=== PATIENT | female | born 2000 | race Two or more races ===

== ENCOUNTER 2025-03-23 19:41 | Inpatient (IN) | payer MEDICAID, OTHER ==
[~2025-03-23] VITALS: Ht 162.6 cm; Wt 100.3 kg
[2025-03-23 20:41] LABS: Hematocrit 37.9 % (36.0-46.0); Hemoglobin 12.8 g/dL (12.2-16.2); Mean Corpuscular Hemoglobin 28.6 pg (28.0-32.0); Mean Corpuscular Volume 84.1 fL (80.0-100.0); Nucleated Red Blood Cells % 0.1 %
[2025-03-23 20:51] LABS: Potassium 3.7 mmol/L (3.5-5.1)
[2025-03-23 20:52] LABS: Anion Gap 12 (5-15); Carbon Dioxide 26 mmol/L (20-31)
[2025-03-23 20:53] LABS: Calcium 9.3 mg/dL (8.7-10.4)
[2025-03-23 20:58] LABS: BUN/Creatinine Ratio 13.0 (10.0-20.0); Blood Urea Nitrogen 10 mg/dL (9-23)
[2025-03-23 21:13] LABS: Chloride 97 mmol/L (98-107); Glucose 305 mg/dL (74-106); Sodium 135 mmol/L (136-145)
--- NOTE | 2025-03-23 21:21 | ED.PDOC ---
PRIMARY CARE PHYSICIAN HPI Comments 24 year old female presents to the ED with a chief complaint of vaginal bleeding onset today. Patient states she experienced an episode of vaginal bleeding 5 days ago, lasted about 1 hour, went to see OBGYN, was told she was 5 weeks , ultrasound was done, was told only sac was visualized, repeat would be done in 2 weeks. For the past 4 days she was experiencing spotting and today began experiencing moderate vaginal bleeding with blood clots as well as cramps. P:1. Denies fever, chills, dysuria, nausea, vomiting, chest pain, dizziness, headache. No other symptoms or modifying factors present at this time. Chief Complaint: Time Seen by MD: 21:10 Reviewed Notes: Medications, Allergies Allergies: Coded Allergies: NO KNOWN ALLERGIES (Unverified , 03/23/25) Information Source: Patient Mode of Arrival: Ambulatory Timing: Hours Prehospital treatment: None Severity: Moderate Vaginal Discharge: None Vaginal Lesions: None Bleeding Quality: Bright Red, Clotted Vaginal Mass: None Onset Of Mass/Bleeding: Spontaneous Sexual Activity: Last Consensual Aurelia: Unknown Control: None History of: Current Symptoms of Possible : Missed Period Associated Signs and Symptoms: Vaginal Bleeding, Cramping Past Medical History PAST MEDICAL HISTORY: Denies Surgical History: Denies all surgeries PERSONNEL AND PAYROLL TECHNICIAN History: No Pertinent PERSONNEL AND PAYROLL TECHNICIAN History Family History Family History: Reviewed,noncontributory to illness, No family hx of Cancer, No family hx of DM, No family hx of Heart patrick, No family hx of HTN, No family hx of Kidney patrick, No family hx of Liver patrick, No family hx of Lung patrick, No family hx of Stroke Social History Smoker: Non-Smoker Alcohol: Denies ETOH Use Drugs: Denies Drug Use Lives In: Home Constitutional: denies: chills, diaphoresis, fatigue, fever, malaise, sweats, weakness, others EENTM: denies: blurred vision, double vision, ear bleeding, ear discharge, ear drainage, ear pain, ear ringing, eye pain, eye redness, hearing loss, mouth pain, mouth swelling, nasal discharge, nose bleeding, nose congestion, nose pain, photophobia, tearing, throat pain, throat swelling, voice changes, others Respiratory: denies: cough, hemoptysis, orthopnea, SOB at rest, shortness of breath, SOB with excertion, stridor, wheezing, others Cardiovascular: denies: chest pain, dizzy spells, diaphoresis, Dyspnea on exertion, edema, irregular heart beat, left arm pain, lightheadedness, palpitations, PND, syncope, others Gastrointestinal: denies: abdomen distended, abdominal pain, blood streaked bowels, constipated, diarrhea, dysphagia, difficulty swallowing, hematemesis, melena, nausea, poor appetite, poor fluid intake, rectal bleeding, rectal pain, vomiting, others Genitourinary: reports: abnormal vagina bleeding, pain, ; denies: burning, dyspareunia, dysuria, flank pain, frequency, hematuria, incontinence, vagina discharge, urgency, others Neurological: denies: dizziness, fainting, headache, left sided numbness, left sided weakness, numbness, paresthesia, pre-existing deficit, right sided numbness, right sided weakness, seizure, speech problems, tingling, tremors, weakness, others Musculoskeletal: denies: back pain, gout, joint pain, joint swelling, muscle pain, muscle stiffness, neck pain, others Integumetry: denies: bruises, change in color, change in hair/nails, dryness, laceration, lesions, lumps, rash, wounds, others Allergic/Immunocompromised: denies: Difficulty Healing, Frequent Infections, Hives, Itching, others Hematologic/Lymphatic: denies: anemia, blood clots, easy bleeding, easy bruising, swollen glands, others Endocrine: denies: excessive hunger, excessive sweating, excessive thirst, excessive urination, flushing, intolerance to cold, intolerance to heat, unexplained weight gain, unexplained weight loss, others Psychiatric: denies: anxiety, bipolar disorder, depression, hopeless, panic disorder, schizophrenia, sleepless, suicidal, others All Other Systems: Reviewed and Negative Physical Exam General Appearance: No Apparent Distress, Normal HEENT: Normal ENT Inspection, Pharynx Normal, TMs Normal Neck: Full Range of Motion, Non-Tender, Normal, Normal Inspection Respiratory: Chest Non-Tender, Lungs Clear, No Accessory Muscle Use, No Respiratory Distress, Normal Breath Sounds Cardiovascular: No Edema, No JVD, No Murmur, No Gallop, Normal Peripheral Pulses, Regular Rate/Rhythm Breast Exam: Deferred Gastrointestinal: No Organomegaly, Non Tender, No Pulsatile Mass, Normal Bowel Sounds, Soft Genitalia: Deferred Pelvic: Deferred Rectal: Deferred Extremities: No calf tenderness, Normal capillary refill, Normal inspection, Normal range of motion, Non-tender, No pedal edema Musculoskeletal : Apperance: Normal Neurologic: Alert, caul puller II-XII nml as Tested, No Motor Deficits, Normal Affect, Normal Mood, No Sensory Deficits Cerebellar Function: Normal Reflexes: Normal Skin: Dry, Normal Color, Warm Lymphatic: No Adenopathy Was a procedure done? Was a procedure done?: No X-Ray, Labs, Meds, VS Vital Signs Date Time Temp Pulse Resp B/P (MAP) Pulse Ox O2 Delivery O2 Flow Rate FiO2 03/23/25 22:09 98.4 98 16 106/58 (74) 100 98.4 03/23/25 19:43 98.1 97 19 131/80 98 98.1 Lab Test 03/23/25 20:25 Range/Units White Blood Count 8.5 4.4-10.8 10^3/uL Red Blood Count 4.50 4.0-5.20 10^6/uL Hemoglobin 12.8 12.2-16.2 g/dL Hematocrit 37.9 36.0-46.0 % Mean Corpuscular Volume 84.1 80.0-100.0 fL Mean Corpuscular Hemoglobin 28.6 28.0-32.0 pg Mean Corpuscular Hemoglobin Concent 33.9 32.0-36.0 g/dL Red Cell Distribution Width 13.4 11.8-14.3 % Platelet Count 252 140-450 10^3/uL Mean Platelet Volume 9.1 6.9-10.8 fL Neutrophils (%) (Auto) 69.5 37.0-80.0 % Lymphocytes (%) (Auto) 22.6 10.0-50.0 % Monocytes (%) (Auto) 5.0 0.0-12.0 % Eosinophils (%) (Auto) 2.1 0.0-7.0 % Basophils (%) (Auto) 0.8 0.0-2.0 % Neutrophils # (Auto) 5.9 1.6-8.6 10 ^3/uL Lymphocytes # (Auto) 1.9 0.4-5.4 10 ^3/uL Monocytes # (Auto) 0.4 0-1.3 10 ^3/uL Eosinophils # (Auto) 0.2 0-0.8 10 ^3/uL Basophils # (Auto) 0.1 0-0.2 10 ^3/uL Nucleated Red Blood Cells 0.1 % Sodium Level 135 L 136-145 mmol/L Potassium Level 3.7 3.5-5.1 mmol/L Chloride Level 97 L 98-107 mmol/L Carbon Dioxide Level 26 20-31 mmol/L Anion Gap 12 5-15 Blood Urea Nitrogen 10 9-23 mg/dL Creatinine 0.77 0.550-1.02 mg/dL Glomerular Filtration Rate Calc 111 >90 mL/min BUN/Creatinine Ratio 13.0 10.0-20.0 Serum Glucose 305 H 74-106 mg/dL Calcium Level 9.3 8.7-10.4 mg/dL Beta HCG, Quantitative 3807.2 H 1.5-4.2 mIU/mL Time of 1ST Reevaluation: 21:40 Reevaluation 1ST: Unchanged Patient Education/Counseling: Diagnosis, Treatment, Prognosis Family Education/Counseling: No Family Present Departure 1 Departure Time of Disposition: 01:21 Impression: Primary Impression: New onset type 2 diabetes mellitus Additional Impressions: Hyperglycemia Threatened miscarriage in early 6 weeks gestation of Disposition: ADMITTED INPATIENT Admit to: Med Surg Condition: Guarded Comments 24 year old female, viable 6 wk with vag bleeding. however on lab review blood glucose is quite high at 305. I ordered iv fluids and insulin. patient will need to be admitted for new onset diabetes in early Critical Care Note Critical Care Time?: Yes (35 min-critical care time only) Critical care comment: Total critical care time: Approximately 36 minutes Due to a high probability of clinically significant, life threatening deterioration, the patient required my highest level of preparedness to intervene emergently and I personally spent this critical care time directly and personally managing the patient. This critical care time included obtaining a history; examining the patient; pulse oximetry; ordering and review of studies; arranging urgent treatment with development of a management plan; evaluation of patient's response to treatment; frequent reassessment; and, discussions with other providers. This critical care time was performed to assess and manage the high probability of imminent, life-threatening deterioration that could result in multi-organ failure. It was exclusive of separately billable procedures and treating other patients. Stability Stability form required: No Heart Score Heart Score: Heart Score Response (Comments) Value History N/A 0 EKG N/A 0 Age N/A 0 Risk Factors N/A 0 Troponin N/A 0 Total 0 I personally scribed for TIFFANIE YAO MD ([email or web address]) on 03/23/25 at 21:21. Electronically submitted by Mable Tubbs ([email or web address]). TIFFANIE YAO MD Mar 23, 2025 21:21
--- NOTE | 2025-03-23 22:34 | DVH ---
OB ULTRASOUND <14 WEEKS: HISTORY: vag bleed, 5-6 wks TECHNIQUE: Multiple real-time grayscale sonographic images of the pelvis with duplex Doppler color flow, spectral and M-mode analysis. COMPARISON: None FINDINGS: The uterus measures 7.2 x 5.4 x 5.6 cm The cervix is unremarkable Right ovary measures 2.9 x 2.2 x 2.7 cm with normal Doppler color flow. Left ovary measures 3.7 x 1.7 x 2.1 cm with normal Doppler color flow. IUP single fetus at 6 weeks 0 days average ultrasound age based on mean crown- rump length of 0.37 cm and gestational sac size of 0.69 cm heart rate detected at 91 beats per minute. Yolk sac present. Amniotic fluid unremarkable Kaur-gestational space: Trace subchorionic hemorrhage measuring 0.4 x 0.4 x 0.3 cm. IMPRESSION: IUP single live fetus measuring 6 weeks 0 days AUA corresponding to an CECILIA of 11/16/2025. bradycardia likely related to the early gestational age. Suggest a follow-up ultrasound in 7-10 days for reassessment of viability.
[2025-03-24] VITALS (9 sets, daily range): BP systolic 95–126; BP diastolic 46–78; PULSE 74–95; RESP 15–20; TEMP 98–98.9; O2SAT 97–100
[2025-03-24] MEDS: InsuLIN REG 1unit/0.01ml Soln (100units/ml) SC ONE (01:30)
[2025-03-24] MEDS: SODIUM CHLORIDE 0.9% 1,000 ML IV ONE (02:35)
[2025-03-24] MEDS ORDERED: ACETAMINOPHEN 325 MG TAB PO PRN (03:00)
--- NOTE | 2025-03-24 03:00 | DVHHPRES ---
History of Present Illness Resident Creating Document: NICOLAS PEREZ RESIDENT History of Present Illness This is a 24-year-old female [id number] past medical history of gestational diabetes came to ER with a complaint of per vaginal bleeding associated with mild lower abdominal cramps for 5 days which spotting every time but around 7:00 p.m. day before admission patient noticed clot and decided to come to ER. Patient denies any history of or miscarriage. Patient visited OBGYN on 03/21/2025 and labs/images which came back negative. Patient denies any heavy exercise, weightlifting, use any new medication including OTC. In ER patient serum blood glucose level shows 305 and received insulin. Currently patient denies any fever, SOB, chest pain, headache, upper abdominal pain, dysuria or any other acute distress. Past medical history: Gestational diabetes Past surgical history: Nothing contributory Family history: Mother-diabetes Personal history: Denies any smoking, illicit drug or EtOH PCP: Not selected Allergy: No known allergy Home medication: None Review of Systems Constitutional: Yes: Malaise Gastrointestinal: Other (Intermittent abdominal cramps) Genitourinary: Other (Per vaginal bleeding) Allergies: Coded Allergies: NO KNOWN ALLERGIES (Unverified , 03/23/25) Medications Current Medications Medications Dose Ordered Sig/Dalton Route Start Time Stop Time Status Last Admin Dose Admin Sodium Chloride 1,000 ml @ 75 mls/hr [id number] IV 03/24/25 03:00 UNV Acetaminophen 650 mg Q6HP PRN PO 03/24/25 03:00 UNV Insulin Human Lispro AC SC 03/24/25 07:00 UNV Exam Vital Signs Vital Signs Date Time Temp Pulse Resp B/P (MAP) Pulse Ox O2 Delivery O2 Flow Rate FiO2 03/24/25 02:40 Room Air* 0 21 03/24/25 02:07 98.6 93 16 122/86 (98) 99 98.6 General Appearance: Alert, Oriented X3, Cooperative, mild distress HEENT: Atraumatic, PERRLA, EOMI, Mucous membr. moist/pink Respiratory: Clear to auscultation, Normal air movement Cardiovascular: Regular rate, Normal S1, Normal S2, No murmurs, Gallops Abdominal: Normal bowel sounds, Soft, Other (Mild tenderness lower abdomen on deep palpation) Extremities: No clubbing, No cyanosis, No edema, Normal pulses Skin: No breakdown, No significant lesion Neuro: Normal gait, Normal speech, Strength at 5/5 X4 ext, Sensation intact, Cranial nerves 3-12 NL Psych/Mental Status: Mental status NL, Mood NL Labs/Xrays Labs Test 03/23/25 20:25 Range/Units White Blood Count 8.5 4.4-10.8 10^3/uL Red Blood Count 4.50 4.0-5.20 10^6/uL Hemoglobin 12.8 12.2-16.2 g/dL Hematocrit 37.9 36.0-46.0 % Mean Corpuscular Volume 84.1 80.0-100.0 fL Mean Corpuscular Hemoglobin 28.6 28.0-32.0 pg Mean Corpuscular Hemoglobin Concent 33.9 32.0-36.0 g/dL Red Cell Distribution Width 13.4 11.8-14.3 % Platelet Count 252 140-450 10^3/uL Mean Platelet Volume 9.1 6.9-10.8 fL Neutrophils (%) (Auto) 69.5 37.0-80.0 % Lymphocytes (%) (Auto) 22.6 10.0-50.0 % Monocytes (%) (Auto) 5.0 0.0-12.0 % Eosinophils (%) (Auto) 2.1 0.0-7.0 % Basophils (%) (Auto) 0.8 0.0-2.0 % Neutrophils # (Auto) 5.9 1.6-8.6 10 ^3/uL Lymphocytes # (Auto) 1.9 0.4-5.4 10 ^3/uL Monocytes # (Auto) 0.4 0-1.3 10 ^3/uL Eosinophils # (Auto) 0.2 0-0.8 10 ^3/uL Basophils # (Auto) 0.1 0-0.2 10 ^3/uL Nucleated Red Blood Cells 0.1 % Sodium Level 135 L 136-145 mmol/L Potassium Level 3.7 3.5-5.1 mmol/L Chloride Level 97 L 98-107 mmol/L Carbon Dioxide Level 26 20-31 mmol/L Anion Gap 12 5-15 Blood Urea Nitrogen 10 9-23 mg/dL Creatinine 0.77 0.550-1.02 mg/dL Glomerular Filtration Rate Calc 111 >90 mL/min BUN/Creatinine Ratio 13.0 10.0-20.0 Serum Glucose 305 H 74-106 mg/dL Calcium Level 9.3 8.7-10.4 mg/dL Beta HCG, Quantitative 3807.2 H 1.5-4.2 mIU/mL SEPSIS Sepsis Screen Date sepsis recognized/suspect: Mar 24, 2025 Time Sepsis recognized/suspect: 241 Recent Procedure: No On Antibiotic Therapy: No Respiratory Rate >20: No Heart Rate >90: No Temp<36 C (96.8 F) or >38.3 C: No SBP <90 or MAP <65 mmHG: No New Acute Mental Status Change: No Is the patient on CPAP, BIPAP,: No Physician Orders Ob Ultrasound Comp Less 14wks (03/23/25 20:04) Ob Trans Vaginal Us (03/23/25 ) Admit (03/24/25 02:49) Code Status (03/24/25 02:49) Sodium Chloride 0.9% (03/24/25 03:00) Acetaminophen Tablet (Tylenol Tablet) (03/24/25 03:00) Notify Md Of Changes From Base (03/24/25 02:49) Insulin Lispro (Human) (Humalog) (03/24/25 07:00) Communication Order (03/24/25 02:49) Consistent Carb(Ccho)Diabetes (03/24/25 Breakfast) Vitamin Tablet (Prenavite Table (03/24/25 10:00) * Eligibility Clerk Consultation (03/24/25 02:58) Vital Signs Date Time Temp Pulse Resp B/P (MAP) Pulse Ox O2 Delivery O2 Flow Rate FiO2 03/24/25 02:40 Room Air* 0 21 03/24/25 02:07 98.6 93 16 122/86 (98) 99 98.6 03/23/25 22:09 98.4 98 16 106/58 (74) 100 98.4 03/23/25 19:43 98.1 97 19 131/80 98 98.1 Laboratory Tests Test 03/23/25 20:25 White Blood Count 8.5 10^3/uL (4.4-10.8) Medications Medications Dose Ordered Sig/Dalton Route Start Time Stop Time Status Last Admin Dose Admin Insulin Human Regular 2 units ONCE ONCE SC 03/24/25 01:30 03/24/25 01:31 DC 03/24/25 01:30 2 UNITS Sodium Chloride 1,000 ml @ 1,000 mls/hr Q1H ONCE IV 03/24/25 01:30 03/24/25 02:29 DC 03/24/25 02:35 1,000 MLS/HR Assessment/Plan Assessment/Plan Vaginal bleeding due to threatened 1st trimester In ER patient received insulin, NSS Transvaginal ultrasound: IUP single live fetus measuring 6 weeks. bradycardia likely related to the early gestational age. Beta hC.2 Complete bedrest IVF vitamin Acetaminophen OBGYN consult Monitor for bleeding Gestational diabetes Hyperglycemia serum glucose 305 HbA1c Insulin sliding Monitor blood sugar Hyponatremia Sodium 135 BMP Vitamin D deficiency [place] D3 [address]9551 u/weekly Morbid obesity, BMI 35.8 Lifestyle modification Diet: Carbohydrate consistent diet GI prophylaxis: None DVT prophylaxis: SCD Goals of care discussed. More than 29 minute spent with patient. Full code status. Case discussed with Dr. Koch. Plan discussed with: Patient, Other (Nurse) My Orders Orders - NICOLAS PEREZ Procedure Category Date Status Time Admit ADMIT 03/24/25 Transmitted 02:49 Code Status CODE 03/24/25 Transmitted 02:49 Sodium Chloride 0.9% PHA 03/24/25 Logged 03:00 Acetaminophen Tablet PHA 03/24/25 Logged (Tylenol Tablet) 03:00 Notify Of Changes LADAN 03/24/25 In Process From Base 02:49 Insulin Lispro PHA 03/24/25 Logged (Human) (Humalog) 07:00 Communication Order ORDERS 03/24/25 Transmitted 02:49 Consistent DIET 03/24/25 Transmitted Carb(Ccho)Diabetes Breakfast Vitamin PHA 03/24/25 Transmitted Tablet (Prenavite 10:00 * Eligibility Clerk Consultation CONS 03/24/25 Verified 02:58 Date of Service: Mar 24, 2025 Billing Provider: NELSON KOCH MD Common Visit Codes: [id number] INP/OBS CARE (HIGH) Secondary Visit Codes: [id number] CARE PLAN 30 MINUTES NICOLAS PEREZ Mar 24, 2025 02:59
[2025-03-24] MEDS: SODIUM CHLORIDE 0.9% 1,000 ML IV SCH (03:16)
[2025-03-24] MEDS: INSULIN LISPRO (HUMAN) 100 UNITS/ML ML SC SCH (06:23)
[2025-03-24 06:34] LABS: Hematocrit 35.7 % (36.0-46.0); Hemoglobin 12.2 g/dL (12.2-16.2); Mean Corpuscular Hemoglobin 28.6 pg (28.0-32.0); Mean Corpuscular Volume 84.1 fL (80.0-100.0); Nucleated Red Blood Cells % 0.0 %
[2025-03-24 06:44] LABS: INR 0.99 (0.9-1.15); Partial Thromboplastin Time 26.2 SEC (24.5-34.5); Prothrombin Time 10.5 sec (9.3-11.8)
[2025-03-24 06:46] LABS: Alanine Aminotransferase 46 U/L (7-40); Albumin 3.6 g/dL (3.2-4.8); Alkaline Phosphatase 77 U/L (46-116); Anion Gap 10 (5-15); Bilirubin, Total 0.3 mg/dL (0.2-1.0); Calcium 8.4 mg/dL (8.7-10.4); Carbon Dioxide 25 mmol/L (20-31); Chloride 103 mmol/L (98-107); Cholesterol 189 mg/dL (< 200); Glucose 255 mg/dL (74-106); HDL Cholesterol 41 mg/dL (40-59); Potassium 3.7 mmol/L (3.5-5.1); Sodium 138 mmol/L (136-145); Total Protein 6.5 g/dL (5.7-8.2); Triglycerides 448 mg/dL (< 150)
[2025-03-24 06:49] LABS: BUN/Creatinine Ratio 14.5 (10.0-20.0); Blood Urea Nitrogen 11 mg/dL (9-23)
[2025-03-24] MEDS: INSULIN LANTUS (GLARGINE) 1 /0.01ml (100units/ml) SC SCH (11:01)
[2025-03-24] MEDS: PRENATAL VITAMIN TAB PO SCH (11:01)
[2025-03-24] MEDS: ERGOCALCIFEROL 50,000 UNIT(1.25MG) CAP PO SCH (11:01)
--- NOTE | 2025-03-24 11:02 | DVHPNRES ---
Progress Note Date Seen: Mar 24, 2025 Resident Creating Document: JONH DUCKWORTH RESDIENT Medical Necessity Reason Pt with a Central, PICC or Fol: No Subjective Review of Systems This 24-year-old lady [id number] with a past medical history of gestational diabetes came to the hospital due to vaginal bleeding since 5 days but has worsened since 1 days. She also reports of lower abdominal pain. Last menstrual period: 01/23/25 On 03/24, the patient seen and examined at the bedside. Patient is feeling better and does not have any vaginal bleeding or abdominal pain. Objective vital signs Vital Sign Date Time Temp Pulse Resp B/P (MAP) Pulse Ox O2 Delivery O2 Flow Rate FiO2 03/24/25 08:30 98.6 80 20 95/46 (62) 97 98.6 03/24/25 05:05 Room Air* 0 21 medications Current Medications Medications Dose Ordered Sig/Dalton Route Start Time Stop Time Status Last Admin Dose Admin Sodium Chloride 1,000 ml @ 75 mls/hr [id number] IV 03/24/25 03:00 03/24/25 03:16 75 MLS/HR Acetaminophen 650 mg Q6HP PRN PO 03/24/25 03:00 Insulin Human Lispro AC SC 03/24/25 07:00 03/24/25 06:23 3 UNITS Prenat Multivit/ [place]/Iron/Folic Ac 1 DAILY PO 03/24/25 10:00 Ergocalciferol 50,000 unit Q7D PO 03/24/25 09:00 Insulin Glargine 15 units DAILY@1000 SC 03/24/25 10:00 Diagnostic Test (Pha) 1 strip ACHS 03/24/25 11:30 Examination General Appearance: Alert, Oriented X3, Cooperative, No acute distress HEENT: Atraumatic, PERRLA, EOMI, Mucous membrane moist/pink Respiratory: Clear to auscultation, Normal air movement Cardiovascular: Regular rate, Normal S1, Normal S2, No murmurs, no chest wall tenderness Abdominal: Normal bowel sounds, Soft, No tenderness, No hepatosplenomegaly, No masses Extremities: No clubbing, No cyanosis, No edema, Normal pulses, No tenderness/swelling Skin: No rashes, No breakdown, No significant lesion Neuro: Normal gait, Normal speech, Strength at 5/5 X4 ext, Normal tone, Sensation intact, Cranial nerves 3-12 NL, Reflexes 2+ Psych/Mental Status: Mental status NL, Mood NL laboratory and microbiology Laboratory Tests 03/24/25 06:09 Test 03/24/25 06:09 Range/Units Serum Glucose 255 H 74-106 mg/dL Labs and/or images reviewed: Labs reviewed by me, Image(s) reviewed by me Problem List/Assessment/Plan Problem List/Assessment/Plan Vaginal bleeding and possible threatened Threatened First trimester History of gestational diabetes Uncontrolled diabetes type 2 with hyperglycemia ; new diagnosis Morbid obesity Vitamin-D deficiency * Ultrasound performed, showed IUP single live fetus measuring 6 weeks 0 days AUA corresponding to an CECILIA of 11/16/2025. bradycardia likely related to the early gestational age. Suggest a follow-up ultrasound in 7-10 days for reassessment of viability Plan/recommendation: * IV fluid normal saline * Insulin Lantus 15 units daily with lispro according to sliding scale * Consulted [facility] * Vitamin-D supplement * vitamin DIET: Diabetic diet DVT PROPHYLAXIS: SCDs, no anticoagulant due to bleeding CODE STATUS: Goal of care discussed for 20 minutes, full code DISPOSITION: Med/surge Patient's status and plan discussed with the patient. Case discussed with Dr. Velasco. Plan discussed with: Patient, Other (RN) My Orders My Orders Orders - JONH DUCKWORTH Procedure Category Date Status Time Insulin Lantus PHA 03/24/25 In Process (Glargine) (Lantus) 10:00 Glucose Blood PHA 03/24/25 In Process (Accu-Chek Comfort 11:30 Date of Service: Mar 24, 2025 Billing Provider: MALLY VELASCO MD Common Visit Codes: [id number] INP/OBS CARE(HIGH) Secondary Visit Codes: [id number] CARE PLAN 30 MINUTES (20 minutes) JONH DUCKWORTH RESDIENT Mar 24, 2025 11:02 MALLY VELASCO MD Mar 28, 2025 13:23
[2025-03-24] MEDS: ACCU-CHEK COMFORT CURVE STRIP VI SCH (11:30)
[2025-03-25] VITALS (11 sets, daily range): BP systolic 101–127; BP diastolic 59–71; PULSE 65–80; RESP 16–20; TEMP 97.8–99.1; O2SAT 97–100
[2025-03-25 06:29] LABS: Hematocrit 38.7 % (36.0-46.0); Hemoglobin 13.1 g/dL (12.2-16.2); Mean Corpuscular Hemoglobin 28.8 pg (28.0-32.0); Mean Corpuscular Volume 85.2 fL (80.0-100.0); Nucleated Red Blood Cells % 0.0 %
[2025-03-25 06:53] LABS: Alkaline Phosphatase 89 U/L (46-116); Anion Gap 9 (5-15); BUN/Creatinine Ratio 13.5 (10.0-20.0); Blood Urea Nitrogen 10 mg/dL (9-23); Calcium 9.1 mg/dL (8.7-10.4); Carbon Dioxide 26 mmol/L (20-31); Chloride 103 mmol/L (98-107); Potassium 3.7 mmol/L (3.5-5.1); Sodium 138 mmol/L (136-145); Total Protein 7.2 g/dL (5.7-8.2)
[2025-03-25 06:54] LABS: Alanine Aminotransferase 48 U/L (7-40); Albumin 4.1 g/dL (3.2-4.8); Glucose 249 mg/dL (74-106)
[2025-03-25 06:55] LABS: Bilirubin, Total 0.4 mg/dL (0.2-1.0)
--- NOTE | 2025-03-25 08:14 | DVHINCON2 ---
Date of service: Mar 25, 2025 Referring Physician hospitalist Reason for Consultation vag bleeding History of Present Illness pt is FEMALE ADMITTED FOR VAG BLEEDING ,PELVIC SONO REVEALS SCB PT IS CURRENTLY NOT BLEEDING. HER EDC IS 11-16-25 ,SHE HAD A AT [facility] Past Medical History NA Past Surgical History NA Family History NA Social History ONE Patient Family History: Patient reports no known family medical history. Allergies: Coded Allergies: NO KNOWN ALLERGIES (Unverified , 03/23/25) Home Meds No Active Prescriptions or Reported Meds Current Medications Current Medications Medications (Trade) Dose Ordered Sig/Dalton Route PRN Reason Start Time Stop Time Status Last Admin Prenat Multivit/ [place]/Iron/Folic Ac (Prenavite Tablet) 1 DAILY PO 03/24/25 10:00 03/24/25 11:01 Ergocalciferol (Vitamin D 50,000 Unit) 50,000 unit Q7D PO 03/24/25 09:00 03/24/25 11:01 Insulin Glargine (Lantus) 15 units DAILY@1000 SC 03/24/25 10:00 03/24/25 11:01 Diagnostic Test (Pha) (Accu-Chek Comfort Curve T) 1 strip ACHS 03/24/25 11:30 03/25/25 06:36 Review of Systems Constitutional: no fever, chill, weight loss HEENT: no eye pain, no hearing loss, no oral lesion, no scleral icterus Heart: no chest pain, no chest pressure Lung: no cough, no dyspnea with exertion Abdomen: see HPI : no pain with urination, normal appearing urine,SOME VAG BLEEDING Musculoskeletal: no joint pain, no muscle pain Neurological: no seizure, no loss of sensation, no weakness in extremities Pysch: no depression, no anxiety Derm: no rash, no jaundice Vital Signs Vital Signs Date Time Temp Pulse Resp B/P (MAP) Pulse Ox O2 Delivery O2 Flow Rate FiO2 03/25/25 05:00 98.1 66 20 127/59 (81) 98 98.1 03/24/25 20:00 Room Air* 0 21 Physical Exam SKIN: NL HEENT: NL NECK: NL CARDIAC: RRR PULMONARY: CTA BREASTS -SYMMETRICAL,NO MASSES ABDOMEN: SOFT,NT PELVIC-NO VAG BLEEDING NOTED,CX NL ,UTERUS 8WKS SIZE EXT-NO CCE Labs/Diagnostic Data Labs Test 03/25/25 05:39 03/25/25 05:18 03/24/25 06:09 03/23/25 20:25 Range/Units POC Glucose 245 H 70-106 mg/dl White Blood Count 8.1 4.4-10.8 10^3/uL Red Blood Count 4.55 4.0-5.20 10^6/uL Hemoglobin 13.1 12.2-16.2 g/dL Hematocrit 38.7 36.0-46.0 % Mean Corpuscular Volume 85.2 80.0-100.0 fL Mean Corpuscular Hemoglobin 28.8 28.0-32.0 pg Mean Corpuscular Hemoglobin Concent 33.8 32.0-36.0 g/dL Red Cell Distribution Width 13.4 11.8-14.3 % Platelet Count 230 140-450 10^3/uL Mean Platelet Volume 9.0 6.9-10.8 fL Neutrophils (%) (Auto) 59.2 37.0-80.0 % Lymphocytes (%) (Auto) 31.2 10.0-50.0 % Monocytes (%) (Auto) 6.7 0.0-12.0 % Eosinophils (%) (Auto) 2.5 0.0-7.0 % Basophils (%) (Auto) 0.4 0.0-2.0 % Neutrophils # (Auto) 4.8 1.6-8.6 10 ^3/uL Lymphocytes # (Auto) 2.5 0.4-5.4 10 ^3/uL Monocytes # (Auto) 0.5 0-1.3 10 ^3/uL Eosinophils # (Auto) 0.2 0-0.8 10 ^3/uL Basophils # (Auto) 0 0-0.2 10 ^3/uL Nucleated Red Blood Cells 0.0 % Sodium Level 138 136-145 mmol/L Potassium Level 3.7 3.5-5.1 mmol/L Chloride Level 103 98-107 mmol/L Carbon Dioxide Level 26 20-31 mmol/L Anion Gap 9 5-15 Blood Urea Nitrogen 10 9-23 mg/dL Creatinine 0.74 0.550-1.02 mg/dL Glomerular Filtration Rate Calc 117 >90 mL/min BUN/Creatinine Ratio 13.5 10.0-20.0 Serum Glucose 249 H 74-106 mg/dL Calcium Level 9.1 8.7-10.4 mg/dL Total Bilirubin 0.4 0.2-1.0 mg/dL Aspartate Amino Transferase (AST) 27 13-40 U/L Alanine Aminotransferase (ALT) 48 H 7-40 U/L Alkaline Phosphatase 89 46-116 U/L Total Protein 7.2 5.7-8.2 g/dL Albumin 4.1 3.2-4.8 g/dL Prothrombin Time 10.5 9.3-11.8 sec Prothrombin Time INR 0.99 0.9-1.15 Activated Partial Thromboplast Time 26.2 24.5-34.5 SEC Hemoglobin A1c 11.4 H <5.7 % A1C Triglycerides Level 448 H < 150 mg/dL Cholesterol Level 189 < 200 mg/dL LDL Cholesterol < 100 mg/dL HDL Cholesterol 41 40-59 mg/dL Thyroid Stimulating Hormone (TSH) 1.92 0.55-4.78 uIU/mL Vitamin B12 Level 628 211-911 pg/mL Vitamin D 25-Hydroxy 15.0 L 30.0-100 ng/mL Beta HCG, Quantitative 3807.2 H 1.5-4.2 mIU/mL Primary Diagnosis VAG BLEEDING DUE TO THREATENED AB Plan PELVIC REST ,NO EXERCISE AND REPEAT SONO IN ONE WEEK I HAVE HER FU WITH ME ON FRIDAY TO [facility] WILL SIGN OFF ,THANK YOU FOR THIS CONSULTATION Plan discussed with: Patient Visit Coding OBGYN Date of Service: Mar 25, 2025 Billing Provider: AMY MELENDREZ DO TRAINING AND DEVELOPMENT COORDINATOR Common Visit Codes: [id number] INP/OBS CARE (HIGH) TRAINING AND DEVELOPMENT COORDINATOR Consultation Codes: [id number]/U INPATIENT CONSULT (HIGH) AMY MELENDREZ DO Mar 25, 2025 08:14
--- NOTE | 2025-03-25 10:54 | DVHPNRES ---
Progress Note Date Seen: Mar 25, 2025 Resident Creating Document: JONH DUCKWORTH RESDIENT Medical Necessity Reason Pt with a Central, PICC or Fol: No Subjective Review of Systems This 24-year-old lady [id number] with a past medical history of gestational diabetes came to the hospital due to vaginal bleeding since 5 days but has worsened since 1 days. She also reports of lower abdominal pain. Last menstrual period: 01/23/25 On 03/24, the patient seen and examined at the bedside. Patient is feeling better and does not have any vaginal bleeding or abdominal pain. On 03/25, the patient seen and examined at the bedside. Patient is feeling better since admission but still complaining per vaginal bleeding and abdominal pain. Objective vital signs Vital Sign Date Time Temp Pulse Resp B/P (MAP) Pulse Ox O2 Delivery O2 Flow Rate FiO2 03/25/25 09:00 99.1 78 16 106/68 (81) 98 99.1 03/24/25 20:00 Room Air* 0 21 Total Intake and Output 03/24/25 03/24/25 03/25/25 15:00 23:00 07:00 Intake Total 400 ml 800 ml Balance 400 ml 800 ml medications Current Medications Medications Dose Ordered Sig/Dalton Route Start Time Stop Time Status Last Admin Dose Admin Sodium Chloride 1,000 ml @ 75 mls/hr [id number] IV 03/24/25 03:00 03/25/25 06:36 75 MLS/HR Acetaminophen 650 mg Q6HP PRN PO 03/24/25 03:00 Insulin Human Lispro AC SC 03/24/25 07:00 03/25/25 06:46 2 UNITS Prenat Multivit/ [place]/Iron/Folic Ac 1 DAILY PO 03/24/25 10:00 03/24/25 11:01 1 Ergocalciferol 50,000 unit Q7D PO 03/24/25 09:00 03/24/25 11:01 50,000 UNIT Insulin Glargine 15 units DAILY@1000 SC 03/24/25 10:00 03/24/25 11:01 15 UNITS Diagnostic Test (Pha) 1 strip ACHS 03/24/25 11:30 03/25/25 06:36 1 STRIP Examination General Appearance: Alert, Oriented X3, Cooperative, No acute distress HEENT: Atraumatic, PERRLA, EOMI, Mucous membrane moist/pink Respiratory: Clear to auscultation, Normal air movement Cardiovascular: Regular rate, Normal S1, Normal S2, No murmurs, no chest wall tenderness Abdominal: Normal bowel sounds, Soft, No tenderness, No hepatospenomegaly, No masses Extremities: No clubbing, No cyanosis, No edema, Normal pulses, No tenderness/swelling Skin: No rashes, No breakdown, No significant lesion Neuro: Normal gait, Normal speech, Strength at 5/5 X4 ext, Normal tone, Sensation intact, Cranial nerves 3-12 NL, Reflexes 2+ Psych/Mental Status: Mental status NL, Mood NL laboratory and microbiology Laboratory Tests 03/25/25 05:18 Test 03/25/25 05:18 Range/Units Serum Glucose 249 H 74-106 mg/dL Labs and/or images reviewed: Labs reviewed by me, Image(s) reviewed by me Problem List/Assessment/Plan Problem List/Assessment/Plan Vaginal bleeding and possible threatened Threatened First trimester History of gestational diabetes Uncontrolled diabetes type 2 with hyperglycemia; diagnosed during this admission Morbid obesity Vitamin-D deficiency * Ultrasound performed, showed IUP single live fetus measuring 6 weeks 0 days AUA corresponding to an CECILIA of 11/16/2025. bradycardia likely related to the early gestational age. Suggest a follow-up ultrasound in 7-10 days for reassessment of viability Plan/recommendation: * IV fluid normal saline * Insulin Lantus 15 units daily with lispro according to sliding scale * Consulted OBGYN, recommended medical management and on outpatient basis follow up * Vitamin-D supplement * vitamin DIET: Diabetic diet DVT PROPHYLAXIS: SCDs, no anticoagulant due to bleeding CODE STATUS: Full code DISPOSITION: Med/surge Patient's status and plan discussed with the patient. Case discussed with Dr. Velasco. Plan discussed with: Patient, Other (RN) Date of Service: Mar 25, 2025 Billing Provider: MALLY VELASCO MD Common Visit Codes: [id number] INP/OBS CARE(HIGH) JONH DUCKWORTH RESDIENT Mar 25, 2025 10:54 MALLY VELASCO MD Mar 28, 2025 13:24
[2025-03-26] VITALS (8 sets, daily range): BP systolic 99–123; BP diastolic 58–70; PULSE 66–84; RESP 16–20; TEMP 97.5–98.5; O2SAT 97–100
[2025-03-26 05:44] LABS: Hematocrit 36.8 % (36.0-46.0); Hemoglobin 12.5 g/dL (12.2-16.2); Mean Corpuscular Hemoglobin 28.6 pg (28.0-32.0); Mean Corpuscular Volume 84.1 fL (80.0-100.0); Nucleated Red Blood Cells % 0.0 %
--- NOTE | 2025-03-26 10:49 | DVHPNRES ---
Progress Note Date Seen: Mar 26, 2025 Resident Creating Document: JONH DUCKWORTH RESDIENT Medical Necessity Reason Pt with a Central, PICC or Fol: No Subjective Review of Systems This 24-year-old lady [id number] with a past medical history of gestational diabetes came to the hospital due to vaginal bleeding since 5 days but has worsened since 1 days. She also reports of lower abdominal pain. Last menstrual period: 01/23/25 On 03/24, the patient seen and examined at the bedside. Patient is feeling better and does not have any vaginal bleeding or abdominal pain. On 03/25, the patient seen and examined at the bedside. Patient is feeling better since admission but still complaining per vaginal bleeding and abdominal pain. On 03/26, the patient seen and examined at the bedside. Patient is still complaining of vaginal bleeding. Objective vital signs Vital Sign Date Time Temp Pulse Resp B/P (MAP) Pulse Ox O2 Delivery O2 Flow Rate FiO2 03/26/25 09:00 97.9 68 18 123/68 (86) 98 97.9 03/25/25 20:00 Room Air* 0 21 Total Intake and Output 03/25/25 03/25/25 03/26/25 15:00 23:00 07:00 Intake Total 2310 ml 1325 ml Balance 2310 ml 1325 ml medications Current Medications Medications Dose Ordered Sig/Dalton Route Start Time Stop Time Status Last Admin Dose Admin Sodium Chloride 1,000 ml @ 75 mls/hr [id number] IV 03/24/25 03:00 03/25/25 18:03 75 MLS/HR Acetaminophen 650 mg Q6HP PRN PO 03/24/25 03:00 Insulin Human Lispro AC SC 03/24/25 07:00 03/25/25 17:25 1 UNITS Prenat Multivit/ Wellness Health Coach/Iron/Folic Ac 1 DAILY PO 03/24/25 10:00 03/26/25 10:08 1 Ergocalciferol 50,000 unit Q7D PO 03/24/25 09:00 03/24/25 11:01 50,000 UNIT Insulin Glargine 15 units DAILY@1000 SC 03/24/25 10:00 03/26/25 10:12 15 UNITS Diagnostic Test (Pha) 1 strip ACHS 03/24/25 11:30 11/29/25 06:54 1 STRIP Examination General Appearance: Alert, Oriented X3, Cooperative, No acute distress HEENT: Atraumatic, PERRLA, EOMI, Mucous membrane moist/pink Respiratory: Clear to auscultation, Normal air movement Cardiovascular: Regular rate, Normal S1, Normal S2, No murmurs, no chest wall tenderness Abdominal: Normal bowel sounds, Soft, No tenderness, No hepatospenomegaly, No masses Extremities: No clubbing, No cyanosis, No edema, Normal pulses, No tenderness/swelling Skin: No rashes, No breakdown, No significant lesion Neuro: Normal gait, Normal speech, Strength at 5/5 X4 ext, Normal tone, Sensation intact, Cranial nerves 3-12 NL, Reflexes 2+ Psych/Mental Status: Mental status NL, Mood NL laboratory and microbiology Laboratory Tests 03/26/25 05:09 03/25/25 05:18 Test 03/25/25 05:18 Range/Units Serum Glucose 249 H 74-106 mg/dL Labs and/or images reviewed: Labs reviewed by me, Image(s) reviewed by me Problem List/Assessment/Plan Problem List/Assessment/Plan Vaginal bleeding and possible threatened Threatened First trimester History of gestational diabetes Uncontrolled diabetes type 2 with hyperglycemia; diagnosis during this Morbid obesity Vitamin-D deficiency * Ultrasound performed, showed IUP single live fetus measuring 6 weeks 0 days AUA corresponding to an CECILIA of 11/16/2025. bradycardia likely related to the early gestational age. Suggest a follow-up ultrasound in 7-10 days for reassessment of viability Plan/recommendation: * IV fluid normal saline * Insulin Lantus 15 units daily with lispro according to sliding scale * Consulted OBGYN, recommended medical management and on outpatient basis follow up * Vitamin-D supplement * vitamin DIET: Diabetic diet DVT PROPHYLAXIS: SCD, no anticoagulant due to bleeding CODE STATUS: Goal of care discussed for more than 18 minutes, full code DISPOSITION: Med/surge Patient's status and plan discussed with the patient. Case discussed with Dr. Velasco. Plan discussed with: Patient, Other (RN) Date of Service: Mar 26, 2025 Billing Provider: MALLY VELASCO MD Common Visit Codes: [id number] INP/OBS CARE(HIGH) JONH DUCKWORTH RESDIENT Mar 26, 2025 10:49 MALLY VELASCO MD Mar 28, 2025 13:25
[2025-03-26] MEDS ORDERED: DEXTROSE (50%) 50ML SYRG IV PRN (11:15)
[2025-03-26] MEDS: ACCU-CHEK COMFORT CURVE STRIP VI SCH (11:30)
[2025-03-26] MEDS: InsuLIN REG 1unit/0.01ml Soln (100units/ml) SC SCH ×2 (12:04→22:10)
[2025-03-26] MEDS ORDERED: MORPHINE SULFATE INJ 2 MG/ml SYRG IV PRN (16:45)
[2025-03-26] MEDS: INSULIN LANTUS (GLARGINE) 1 /0.01ml (100units/ml) SC SCH (22:10)
[2025-03-27 01:00] VITALS: BP 109/62; PULSE 77; RESP 18; TEMP 98.2; O2SAT 100
[2025-03-27 05:00] VITALS: BP 101/51; PULSE 63; RESP 16; TEMP 98.1; O2SAT 99
[2025-03-27 06:35] LABS: Hematocrit 38.1 % (36.0-46.0); Hemoglobin 13.0 g/dL (12.2-16.2); Mean Corpuscular Hemoglobin 28.6 pg (28.0-32.0); Mean Corpuscular Volume 83.6 fL (80.0-100.0); Nucleated Red Blood Cells % 0.0 %
[2025-03-27 07:00] LABS: Albumin 3.9 g/dL (3.2-4.8); Alkaline Phosphatase 73 U/L (46-116); Anion Gap 10 (5-15); BUN/Creatinine Ratio 9.9 (10.0-20.0); Calcium 9.0 mg/dL (8.7-10.4); Carbon Dioxide 25 mmol/L (20-31); Chloride 101 mmol/L (98-107); Sodium 136 mmol/L (136-145); Total Protein 7.1 g/dL (5.7-8.2)
[2025-03-27 07:01] LABS: Bilirubin, Total 0.4 mg/dL (0.2-1.0)
[2025-03-27 07:06] LABS: Alanine Aminotransferase 49 U/L (7-40); Blood Urea Nitrogen 7 mg/dL (9-23); Glucose 119 mg/dL (74-106); Potassium 3.3 mmol/L (3.5-5.1)
[2025-03-27 08:00] VITALS: PULSE 72; RESP 18; O2SAT 99
[2025-03-27 08:47] VITALS: BP 92/50; PULSE 72; RESP 16; TEMP 98; O2SAT 99
[2025-03-27] MEDS: POTASSIUM EFFERVESENT TAB 25 MEQ PO ONE (09:05)
[2025-03-27] MEDS ORDERED: INSUINJ37 SC (11:01)
[2025-03-27] MEDS ORDERED: ERGO1CAP23 PO (11:01)
[2025-03-27 11:38] VITALS: BP 98/67; PULSE 62; RESP 18; TEMP 98.9; O2SAT 98
--- NOTE | 2025-03-27 13:04 | DVHDSRES ---
Discharge Summary Date of Admission Resident Creating Document: YVONNE KRISHNAMURTHY RESIDENT Mar 24, 2025 at 02:49 Date of Discharge: Mar 27, 2025 Admitting Diagnosis Vaginal bleeding Labs/Diagnostic Data: Laboratory Results Test 03/27/25 11:27 03/27/25 05:27 03/24/25 06:09 03/23/25 20:25 POC Glucose 183 mg/dl (70-106) White Blood Count 10.8 10^3/uL (4.4-10.8) Red Blood Count 4.56 10^6/uL (4.0-5.20) Hemoglobin 13.0 g/dL (12.2-16.2) Hematocrit 38.1 % (36.0-46.0) Mean Corpuscular Volume 83.6 fL (80.0-100.0) Mean Corpuscular Hemoglobin 28.6 pg (28.0-32.0) Mean Corpuscular Hemoglobin Concent 34.2 g/dL (32.0-36.0) Red Cell Distribution Width 13.3 % (11.8-14.3) Platelet Count 246 10^3/uL (140-450) Mean Platelet Volume 9.0 fL (6.9-10.8) Neutrophils (%) (Auto) 65.8 % (37.0-80.0) Lymphocytes (%) (Auto) 24.8 % (10.0-50.0) Monocytes (%) (Auto) 7.2 % (0.0-12.0) Eosinophils (%) (Auto) 1.8 % (0.0-7.0) Basophils (%) (Auto) 0.4 % (0.0-2.0) Neutrophils # (Auto) 7.1 10 ^3/uL (1.6-8.6) Lymphocytes # (Auto) 2.7 10 ^3/uL (0.4-5.4) Monocytes # (Auto) 0.8 10 ^3/uL (0-1.3) Eosinophils # (Auto) 0.2 10 ^3/uL (0-0.8) Basophils # (Auto) 0 10 ^3/uL (0-0.2) Nucleated Red Blood Cells 0.0 % Sodium Level 136 mmol/L (136-145) Potassium Level 3.3 mmol/L (3.5-5.1) Chloride Level 101 mmol/L (98-107) Carbon Dioxide Level 25 mmol/L (20-31) Anion Gap 10 (5-15) Blood Urea Nitrogen 7 mg/dL (9-23) Creatinine 0.71 mg/dL (0.550-1.02) Glomerular Filtration Rate Calc 122 mL/min (>90) BUN/Creatinine Ratio 9.9 (10.0-20.0) Serum Glucose 119 mg/dL (74-106) Calcium Level 9.0 mg/dL (8.7-10.4) Total Bilirubin 0.4 mg/dL (0.2-1.0) Aspartate Amino Transferase (AST) 33 U/L (13-40) Alanine Aminotransferase (ALT) 49 U/L (7-40) Alkaline Phosphatase 73 U/L (46-116) Total Protein 7.1 g/dL (5.7-8.2) Albumin 3.9 g/dL (3.2-4.8) Prothrombin Time 10.5 sec (9.3-11.8) Prothrombin Time INR 0.99 (0.9-1.15) Activated Partial Thromboplast Time 26.2 SEC (24.5-34.5) Hemoglobin A1c 11.4 % A1C (<5.7) Triglycerides Level 448 mg/dL (< 150) Cholesterol Level 189 mg/dL (< 200) LDL Cholesterol mg/dL (< 100) HDL Cholesterol 41 mg/dL (40-59) Thyroid Stimulating Hormone (TSH) 1.92 uIU/mL (0.55-4.78) Vitamin B12 Level 628 pg/mL (211-911) Vitamin D 25-Hydroxy 15.0 ng/mL (30.0-100) Beta HCG, Quantitative 3807.2 mIU/mL (1.5-4.2) Other Laboratory Tests 03/27/25 05:27 Brief Hx & Hospital Course: Fatou Noble is a 24-year-old lady [id number] with a past medical history of gestational diabetes came to the hospital due to vaginal bleeding since 5 days but has worsened since 1 days. She also reports of lower abdominal pain. Last menstrual period: 01/23/25.Blood glucose levels was 250 and hemoglobin A1c was 11. Triglyceride levels were elevated in the 400s. Patient was started on insulin. Obstetric and Gynecology consult was placed. Obstetric ultrasound revealed single live fetus measuring 6 weeks and bradycardia likely due to early gestational age. [employer] Press Operator advised bedrest and outpatient follow up in the clinic after discharge. She advised pelvic rest, no exercise and repeat USG in 1 week. During the course of the hospitalization, the patient improved clinically and is hence being discharged. Physical examination at discharge: General Appearance: Alert, Oriented X3, Cooperative, No acute distress HEENT: Atraumatic, PERRLA, EOMI, Mucous membrane moist/pink Respiratory: Clear to auscultation, Normal air movement Cardiovascular: Regular rate, Normal S1, Normal S2, No murmurs, no chest wall tenderness Abdominal: Normal bowel sounds, Soft, No tenderness, No hepatosplenomegaly, No masses Extremities: No clubbing, No cyanosis, No edema, Normal pulses, No tenderness/swelling Skin: No rashes, No breakdown, No significant lesion Neuro: Normal gait, Normal speech, Strength at 5/5 X4 ext, Normal tone, Sensation intact, Cranial nerves 3-12 NL, Reflexes 2+ Psych/Mental Status: Mental status NL, Mood NL Educated extensively about diabetes mellitus type [address] Jacques Consults/Reason for consult CARBON BRUSHER ASSEMBLER consulted for vaginal bleed during Condition at Discharge: Stable Final Diagnosis/Problems List Vaginal bleeding and possible threatened Uncontrolled diabetes type 2 with hyperglycemia; diagnosed during this admission History of gestational diabetes Hypokalemia First trimester Morbid obesity Vitamin-D deficiency Discharge Disposition: Home Discharge Instruct/Medications Diet: Cardiac 2g Na,low cholest Activity: Bed rest Follow Up/Referral: Follow up with the PCP within 1 week of discharge. Follow up with the OBGYN on outpatient basis on friday Follow up with [place] clinic with Dr. Jacques on Friday, Details shared with patient Medications: as per EHR Scheduled Ergocalciferol (Vitamin D 63062 Unit), 50,000 UNIT PO Q7D Insulin Glargine (Lantus Solostar), 20 UNIT SC BID Discharge Statement: "Patient was advised to return to the ER or call 911 if any headaches, dizziness, shortness of breath, chest pain, abdominal pain, bleeding, fevers, or worsening of medical condition. Patient was counseled about treatment plan, medications, possible side effects, patientverbalized understanding. All questions were answered to the best of my ability. This discharge took greater then 30 minutes in planning, reviewing documentation, counseling the patient, and discussing with other team members." ASSESSMENT ASSESSMENT Assessment VAGINAL BLEEDING POSSIBLE THREATENED Date of Service: Mar 27, 2025 Billing Provider: MALLY JACQUES MD Common Visit Codes: [id number] DISCH DAY >30min YVONNE KRISHNAMURTHY Mar 27, 2025 13:04 MALLY JACQUES MD Mar 28, 2025 13:27
== END 2025-03-27 13:01 | disposition home or self-care (01) | DRG 566 ==
LOC: ER 19:41 → OVERFLOW 03-24 02:49 → CENTRAL 03-24 04:31
PROVIDERS: ATTEND Obstetrics & Gynecology
DX: O20.0 Threatened abortion (principal); E87.1 Hypo-osmolality and hyponatremia; O24.419 Gestational diabetes mellitus in pregnancy, unspecified control; E66.01 Morbid (severe) obesity due to excess calories; Z3A.01 Less than 8 weeks gestation of pregnancy; E55.9 Vitamin D deficiency, unspecified; O99.281 Endocrine, nutritional and metabolic diseases complicating pregnancy, first trimester; O99.211 Obesity complicating pregnancy, first trimester; E87.6 Hypokalemia
CPT/HCPCS: 36415; 76801; 76817; 80048; 80053; 80061; 82306; 82607; 82962; 83036; 84443; 84702; 85025; 85610; 85730; 86901; 99291; G0378; J1815